=== PATIENT | male | born 1985 | race Caucasian/White ===

== ENCOUNTER 2020-09-25 11:39 | Emergency (ER) | payer OTHER ==
[~2020-09-25] VITALS: Ht 170.1 cm; Wt 68.0 kg
[~2020-09-25 11:39] MED LIST: MOTRIN800 MG PO
[2020-09-25 12:02] LABS: BASO % 0.4 % (0.0-1.0); EOS # 0.1 10*3/uL (0.0-0.4); EOS % 1.8 % (1.0-4.0); HEMATOCRIT 47.3 % (42.0-52.0); LYMPH # 1.7 10*3/uL (1.3-4.4); LYMPH % 33.6 % (27.0-41.0); MEAN CELL VOLUME 91.1 fl (80.0-94.0); MEAN CORPUSCULAR HGB 29.9 pg (27.0-31.0); MEAN CORPUSCULAR HGB CONC 32.8 g/dl (33.0-37.0); MEAN PLATELET VOLUME 11.3 fl (9.6-12.3); MONO # 0.4 10*3/uL (0.1-1.0); MONO % 8.2 % (3.0-9.0); NEUT # 2.8 10*3/uL (2.3-7.9); NEUT % 55.8 % (47.0-73.0); PLATELET COUNT AUTOMATED 163 10*3/uL (130-400); RED BLOOD COUNT 5.19 10*6/uL (4.50-5.90); RED CELL DISTRI WIDTH 12.5 % (0-14.5)
[2020-09-25 12:17] LABS: ALBUMIN 3.9 gm/dl (3.1-4.5); ALKALINE PHOSPHATASE 49 U/L (45-117); BUN 13 mg/dl (7-24); CHLORIDE 107 mmol/L (98-107); CREATININE 0.97 mg/dL (0.70-1.30); POTASSIUM 3.9 mmol/L (3.5-5.1); SGOT/AST 14 IU/L (3-35); SGPT/ALT 18 U/L (12-78); SODIUM 140 mmol/L (136-145); TOTAL PROTEIN 7.2 gm/dL (6.4-8.2)
[2020-09-25] MEDS ORDERED: BACITRACIN ZINC14 GM T (12:54)
[2020-09-25] MEDS ORDERED: IBUPROFEN600 MG PO (12:54)
[2020-09-25] MEDS ORDERED: NORCO 5-325 TA1 EACH PO (12:54)
== END 2020-09-25 14:15 | disposition home or self-care (01) ==
LOC: ED 11:39
PROVIDERS: Physician Assistant
DX: T21.06XA Burn of unspecified degree of male genital region, initial encounter (principal); Z88.8 Allergy status to other drugs, medicaments and biological substances; X08.8XXA Exposure to other specified smoke, fire and flames, initial encounter; Y93.89 Activity, other specified; Y92.89 Other specified places as the place of occurrence of the external cause; Y99.8 Other external cause status